=== PATIENT | male | born 1955 | race Caucasian/White ===

== ENCOUNTER → 2022-03-06 | Outpatient (CLI) | payer MEDICARE, OTHER ==
[~2022-03-06] MED LIST: ACET-1349 PO; ALEV220T22 PO; ATEN50TA2 PO; BAYE81TA7 PO; FLOM0.4C39 PO; HYDR-3713 PO; LISI5TAB11 PO
== END ==
LOC: M LABSMTC 10:51
PROVIDERS: ATTEND Anesthesiology
DX: Z01.818 Encounter for other preprocedural examination (principal); Z11.52 Encounter for screening for COVID-19

== ENCOUNTER 2022-03-10 09:30 | Inpatient (IN) | payer MEDICARE ==
[2022-03-10] VITALS (7 sets, daily range): BP systolic 146–188; BP diastolic 79–110
[~2022-03-10] VITALS: Ht 172.7 cm; Wt 94.8 kg
[~2022-03-10 09:30] MED LIST changes: +ceFAZolin SOD 2 GM in IV 1 EA IV ONE
[2022-03-10] MEDS ORDERED: ceFAZolin SOD 2 GM in IV 1 EA IV ONE (11:30)
[2022-03-10] MEDS ORDERED: HOME MED LIST COMPLETE! XX SCH (11:50)
[2022-03-10] MEDS ORDERED: PERCOCET 5MG/325MG TAB PO PRN ×2 (13:35)
[2022-03-10] MEDS ORDERED: ACETAMINOPHEN TAB 650MG DOSE (2X325MG) PO PRN (13:35)
[2022-03-10] MEDS ORDERED: BUPIVACAINE HCL 0.25% 30ML VIAL As Ordered ONE ×3 (14:05→18:41)
[2022-03-10] MEDS ORDERED: LIDOCAINE 1% SDV 30ML VIAL As Ordered ONE ×2 (14:05→18:40)
[2022-03-10] MEDS ORDERED: fentaNYL 100 MCG/2 ML INJECTION As Ordered ONE (15:18)
[2022-03-10] MEDS ORDERED: ACETAMINOPHEN 1000MG 100ML IV BTL (OFIRMEV) (J0131 PER 10MG) As Ordered ONE (15:18)
[2022-03-10] MEDS ORDERED: dexameTHASONE 4 MG/ML 1ML VIAL (J1100 PER 1MG) As Ordered ONE (15:18)
[2022-03-10] MEDS ORDERED: ROCURONIUM BROMIDE 50 MG/5 ML VIAL As Ordered ONE (15:18)
[2022-03-10] MEDS ORDERED: SUGAMMADEX SODIUM 500 MG/5 ML VIAL (BRIDION) As Ordered ONE (15:18)
[2022-03-10] MEDS ORDERED: MIDAZOLAM INJ 2MG/2ML VIAL (J2250 PER 1MG) As Ordered ONE (15:18)
[2022-03-10] MEDS ORDERED: propofoL 200 MG/20 ML VIAL As Ordered ONE ×2 (15:18→18:34)
[2022-03-10] MEDS ORDERED: HYDROmorphone HCL 2MG/ML 1ML VIAL As Ordered ONE (15:18)
[2022-03-10] MEDS ORDERED: ONDANSETRON 4MG 2ML VIAL As Ordered ONE (15:18)
[2022-03-10] MEDS ORDERED: LIDOCAINE 2% 100MG/5ML SDV (FOR ANES.) As Ordered ONE (15:18)
[2022-03-10] MEDS ORDERED: hydrALAZINE 20MG/ML 1ML VIAL (J0360 PER 20MG) As Ordered ONE (15:19)
[2022-03-10] MEDS ORDERED: ePHEDrine SULFATE 25 MG/5 ML(5MG/ML) SYRINGE As Ordered ONE (16:56)
[2022-03-10] MEDS ORDERED: ONDANSETRON 4MG 2ML VIAL IV PRN (18:30)
[2022-03-10] MEDS ORDERED: LR 1,000 ML IV SCH (18:30)
[2022-03-10] MEDS ORDERED: HYDROMORPHONE HCL 0.5 MG/ 0.5 ML SYRINGE (J1170 PER 1) IV PRN (18:30)
[2022-03-10] MEDS ORDERED: fentaNYL 100 MCG/2 ML INJECTION IV PRN (18:30)
[2022-03-10] MEDS ORDERED: oxyCODONE 5MG TAB PO PRN (18:30)
[2022-03-10 19:39] LABS: HEMATOCRIT 43.1 % (42.0-52.0); HEMOGLOBIN 15.2 g/dl (13.5-17.5); MEAN CORPUSCULAR HGB CONC 35.3 g/dl (32.0-36.5); MEAN CORPUSCULAR VOLUME 93.7 fl (80.0-96.0); PLATELET COUNT, AUTOMATED 234 10^3/uL (150-450)
[2022-03-10] MEDS: DOCUSATE SODIUM 100MG CAPSULE PO SCH (20:17)
[2022-03-10] MEDS: HEPARIN SOD (PORCINE) 5000UNITS/ML 1ML VIAL/SYRINGE SC SCH (20:18)
[2022-03-10] MEDS: lisinopriL 5 MG TAB PO SCH (20:18)
[2022-03-10] MEDS: ONDANSETRON 4MG 2ML VIAL IV PRN (20:22)
[2022-03-10 20:24] LABS: BLOOD UREA NITROGEN 15 MG/DL (7-18); CALCIUM LEVEL 9.2 MG/DL (8.8-10.2); CARBON DIOXIDE LEVEL 23 MEQ/L (21-32); CHLORIDE LEVEL 104 MEQ/L (98-107); CREATININE FOR GFR 1.26 MG/DL (0.70-1.30); GLOMERULAR FILTRATION RATE > 60.0 (>49); GLUCOSE, FASTING 201 MG/DL (70-100); SODIUM LEVEL 135 MEQ/L (136-145)
[2022-03-10] MEDS: NS 1,000 ML IV SCH (20:55)
[2022-03-10] MEDS: METOCLOPRAMIDE INJ 10MG/2ML VIAL (J2765 PER 1) IV PRN (22:28)
[2022-03-10] MEDS: ceFAZolin SOD 1 GM in D5W MINI-BAG PLUS 50 ML IV SCH (22:28)
[2022-03-10] MEDS ORDERED: MORPHINE 2 MG/ML 1ML VIAL IV ONE (23:10)
[2022-03-11] VITALS (7 sets, daily range): BP systolic 159–202; BP diastolic 82–110
[2022-03-11] MEDS ORDERED: NORCO, ANEXSIA 5/325MG TABLET (HYDROcodone/ACETAMINOPHEN) PO PRN (01:50)
[2022-03-11] MEDS: NORCO, ANEXSIA 5/325MG TABLET (HYDROcodone/ACETAMINOPHEN) PO PRN ×2 (02:08→06:09)
[2022-03-11] MEDS: ONDANSETRON 4MG 2ML VIAL IV PRN ×2 (02:57→17:26)
[2022-03-11] MEDS: HEPARIN SOD (PORCINE) 5000UNITS/ML 1ML VIAL/SYRINGE SC SCH ×3 (05:39→22:00)
[2022-03-11] MEDS: METOCLOPRAMIDE INJ 10MG/2ML VIAL (J2765 PER 1) IV PRN ×2 (05:39→20:14)
[2022-03-11] MEDS: ceFAZolin SOD 1 GM in D5W MINI-BAG PLUS 50 ML IV SCH (05:39)
[2022-03-11] MEDS: NS 1,000 ML IV SCH (05:40)
[2022-03-11 07:06] LABS: HEMATOCRIT 40.3 % (42.0-52.0); HEMOGLOBIN 14.3 g/dl (13.5-17.5); MEAN CORPUSCULAR HEMOGLOBIN 33.6 pg (27.0-33.0); MEAN CORPUSCULAR HGB CONC 35.5 g/dl (32.0-36.5); MEAN CORPUSCULAR VOLUME 94.8 fl (80.0-96.0); PLATELET COUNT, AUTOMATED 202 10^3/uL (150-450); RED BLOOD COUNT 4.25 10^6/uL (4.30-6.10); WHITE BLOOD COUNT 12.8 10^3/uL (4.0-10.0)
[2022-03-11 07:32] LABS: CREATININE FOR GFR 1.52 MG/DL (0.70-1.30); GLOMERULAR FILTRATION RATE 48.6 (>49); POTASSIUM SERUM 4.1 MEQ/L (3.5-5.1)
[2022-03-11] MEDS ORDERED: HYDROMORPHONE HCL 0.5 MG/ 0.5 ML SYRINGE (J1170 PER 1) IV ONE (07:45)
[2022-03-11] MEDS: atenoloL 50 MG TAB PO SCH (09:39)
[2022-03-11] MEDS: DOCUSATE SODIUM 100MG CAPSULE PO SCH ×2 (09:40→22:00)
[2022-03-11] MEDS: lisinopriL 5 MG TAB PO SCH (09:40)
[2022-03-11] MEDS: ANEXSIA, NORCO 7.5MG/325MG TABLET(HYDROCODONE/APAP) PO PRN ×3 (12:10→22:01)
[2022-03-11] MEDS ORDERED: HYDR-4514 PO (16:37)
[2022-03-11] MEDS ORDERED: COLA100C5 PO (16:37)
[2022-03-11] MEDS ORDERED: ONDA-83 PO (16:37)
[2022-03-11] MEDS ORDERED: lisinopriL 5 MG TAB PO ONE (21:15)
[2022-03-12] VITALS (8 sets, daily range): BP systolic 140–200; BP diastolic 62–110
[2022-03-12] MEDS: ONDANSETRON 4MG 2ML VIAL IV PRN ×2 (02:05→12:51)
[2022-03-12] MEDS: ANEXSIA, NORCO 7.5MG/325MG TABLET(HYDROCODONE/APAP) PO PRN ×4 (02:06→21:53)
[2022-03-12] MEDS: HEPARIN SOD (PORCINE) 5000UNITS/ML 1ML VIAL/SYRINGE SC SCH ×3 (06:32→21:54)
[2022-03-12] MEDS: METOCLOPRAMIDE INJ 10MG/2ML VIAL (J2765 PER 1) IV PRN (06:46)
[2022-03-12] MEDS: lisinopriL 5 MG TAB PO SCH (07:11)
[2022-03-12] MEDS: atenoloL 50 MG TAB PO SCH (07:11)
[2022-03-12 07:34] LABS: HEMATOCRIT 41.1 % (42.0-52.0); HEMOGLOBIN 13.9 g/dl (13.5-17.5); MEAN CORPUSCULAR HEMOGLOBIN 32.5 pg (27.0-33.0); MEAN CORPUSCULAR HGB CONC 33.8 g/dl (32.0-36.5); PLATELET COUNT, AUTOMATED 198 10^3/uL (150-450); RED BLOOD COUNT 4.28 10^6/uL (4.30-6.10); WHITE BLOOD COUNT 10.9 10^3/uL (4.0-10.0)
[2022-03-12 08:10] LABS: CALCIUM LEVEL 9.6 MG/DL (8.8-10.2); CREATININE FOR GFR 1.52 MG/DL (0.70-1.30); GLOMERULAR FILTRATION RATE 48.6 (>49)
[2022-03-12] MEDS: DOCUSATE SODIUM 100MG CAPSULE PO SCH ×2 (09:17→21:53)
[2022-03-12] MEDS ORDERED: **hydrALAZINE HCL** 25 MG TAB PO SCH (14:00)
[2022-03-12] MEDS ORDERED: amLODIPine 5 MG TAB PO ONE (14:15)
[2022-03-12] MEDS ORDERED: HYDROMORPHONE HCL 0.5 MG/ 0.5 ML SYRINGE (J1170 PER 1) IV ONE (15:15)
[2022-03-12] MEDS ORDERED: MOM 30ML SUSPENSION UDC PO ONE (15:15)
[2022-03-12 16:17] LABS: HEMOGLOBIN A1c 5.2 %
[2022-03-12] MEDS ORDERED: NS 0.45% 1,000 ML IV SCH (16:50)
[2022-03-12] MEDS ORDERED: BISACODYL ENEMA 10 MG/30 ML PR ONE (17:00)
[2022-03-12] MEDS ORDERED: **hydrALAZINE HCL** 25 MG TAB PO ONE (20:00)
[2022-03-12] MEDS: **hydrALAZINE HCL** 25 MG TAB PO SCH (21:54)
[2022-03-13 01:58] VITALS: BP 160/72
[2022-03-13 02:00] VITALS: BP 160/72
[2022-03-13] MEDS: ANEXSIA, NORCO 7.5MG/325MG TABLET(HYDROCODONE/APAP) PO PRN (04:58)
[2022-03-13 06:04] VITALS: BP 124/72
[2022-03-13 06:46] VITALS: BP 170/80
[2022-03-13] MEDS: **hydrALAZINE HCL** 25 MG TAB PO SCH ×2 (06:46→14:00)
[2022-03-13] MEDS: HEPARIN SOD (PORCINE) 5000UNITS/ML 1ML VIAL/SYRINGE SC SCH ×2 (06:46→14:00)
[2022-03-13 07:15] LABS: MEAN CORPUSCULAR HEMOGLOBIN 32.6 pg (27.0-33.0); MEAN CORPUSCULAR VOLUME 93.2 fl (80.0-96.0); PLATELET COUNT, AUTOMATED 211 10^3/uL (150-450); RED BLOOD COUNT 4.29 10^6/uL (4.30-6.10); WHITE BLOOD COUNT 10.3 10^3/uL (4.0-10.0)
[2022-03-13 07:46] LABS: CALCIUM LEVEL 9.2 MG/DL (8.8-10.2); CREATININE FOR GFR 1.41 MG/DL (0.70-1.30); GLOMERULAR FILTRATION RATE 53.1 (>49); POTASSIUM SERUM 3.9 MEQ/L (3.5-5.1)
[2022-03-13] MEDS ORDERED: amLODIPine 5 MG TAB PO SCH (09:00)
[2022-03-13] MEDS: DOCUSATE SODIUM 100MG CAPSULE PO SCH (09:00)
[2022-03-13] MEDS: atenoloL 50 MG TAB PO SCH (09:35)
[2022-03-13 10:00] VITALS: BP 122/60
[2022-03-13] MEDS ORDERED: HYDR-3910 PO (12:31)
[2022-03-13] MEDS ORDERED: AMLO1TAB24 PO (12:31)
[2022-03-13] MEDS ORDERED: HYDR-3911 PO (12:31)
[2022-03-13 14:00] VITALS: BP 138/76
== END 2022-03-13 14:57 | disposition home or self-care (01) | DRG 657 ==
LOC: M OR 09:58 → M MSPAV 20:04
PROVIDERS: ADMIT Urology; ATTEND Urology
PROC: 8E0W4CZ Robotic Assisted Procedure of Trunk Region, Percutaneous Endoscopic Approach (ICD-10-PCS; 2022-03-10)
PROC: 0TT04ZZ Resection of Right Kidney, Percutaneous Endoscopic Approach (ICD-10-PCS; principal; 2022-03-10 11:30)
DX: C64.1 Malignant neoplasm of right kidney, except renal pelvis (principal); N17.9 Acute kidney failure, unspecified; Z79.82 Long term (current) use of aspirin; Z79.899 Other long term (current) drug therapy; I10 Essential (primary) hypertension; I16.0 Hypertensive urgency; K59.00 Constipation, unspecified; D72.829 Elevated white blood cell count, unspecified